=== PATIENT | male | born 1970 | race African-American/Black ===

== ENCOUNTER 2024-10-16 19:39 | Emergency (ER) | payer OTHER, MEDICAID ==
[~2024-10-16] VITALS: Ht 167.6 cm; Wt 65.9 kg
[2024-10-16 20:11] VITALS: BP 147/93; TEMP 36.9; O2SAT 99
[2024-10-16 20:14] VITALS: PULSE 86; RESP 18; O2SAT 100
[2024-10-16] MEDS ORDERED: METH-653 MT (21:09)
[2024-10-16] MEDS ORDERED: IBUP-2029 MT (21:09)
== END 2024-10-16 21:29 | disposition home or self-care (01) ==
LOC: ER 19:39
DX: S33.5XXA Sprain of ligaments of lumbar spine, initial encounter (principal); S43.401A Unspecified sprain of right shoulder joint, initial encounter; M19.011 Primary osteoarthritis, right shoulder; X58.XXXA Exposure to other specified factors, initial encounter; Y93.89 Activity, other specified; Y92.89 Other specified places as the place of occurrence of the external cause; Y99.8 Other external cause status
CPT/HCPCS: 73030; 99283